=== PATIENT | male | born 1985 | race Caucasian/White ===

== ENCOUNTER 2017-04-11 12:15 | Outpatient (CLI) | payer OTHER | END 2017-04-11 23:59 | disposition home or self-care (01) | LOC: WOU 12:15 | PROVIDERS: ATTEND Podiatrist Foot & Ankle Surgery | DX: M21.42 Flat foot [pes planus] (acquired), left foot (principal); M21.41 Flat foot [pes planus] (acquired), right foot; M76.822 Posterior tibial tendinitis, left leg; M76.821 Posterior tibial tendinitis, right leg | CPT/HCPCS: G0463 ==